=== PATIENT | male | born 1935 | race Caucasian/White ===

== ENCOUNTER 2018-06-09 09:57 | Outpatient (CLI) | payer MEDICARE ==
--- NOTE | 2018-06-09 10:27 | RAD ---
PA AND LATERAL CHEST: History: Dyspnea. Comparison: 03-15-14 FINDINGS: Heart size is upper limits of normal with post op sternotomy changes. 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 The lungs are clear of infiltrate. 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 IMPRESSION: Stable exam. POS: [facility]
== END 2018-06-09 09:58 | disposition home or self-care (01) ==
LOC: RAD 09:57
PROVIDERS: ATTEND Internal Medicine Critical Care Medicine
DX: R06.00 Dyspnea, unspecified (principal)
CPT/HCPCS: 71046